=== PATIENT | female | born 1990 | race Caucasian/White ===

== ENCOUNTER 2024-12-21 11:20 | Emergency (ER) | payer SELFPAY ==
[2024-12-21 11:21] VITALS: BP 134/92
[2024-12-21 15:47] VITALS: BP 124/86
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
== END 2024-12-21 16:02 | disposition home or self-care (01) ==
LOC: EMR 11:20
PROVIDERS: EMERGENCY PHYSICIAN Emergency Medicine
DX: S06.0X0A Concussion without loss of consciousness, initial encounter (principal); S00.93XA Contusion of unspecified part of head, initial encounter; V49.59XA Passenger injured in collision with other motor vehicles in traffic accident, initial encounter
CPT/HCPCS: 99284; 70450